=== PATIENT | male | born 1945 | race Caucasian/White ===

== ENCOUNTER → 2020-03-06 | Outpatient (CLI) | payer MEDICARE, BC | LOC: CANPRECLI → VAS 14:41 | DX: Z13.6 Encounter for screening for cardiovascular disorders (principal); M79.89 Other specified soft tissue disorders; Z96.641 Presence of right artificial hip joint ==

== ENCOUNTER → 2020-03-06 | Outpatient (CLI) | payer MEDICARE, BC | LOC: RAD 13:00 | DX: Z13.6 Encounter for screening for cardiovascular disorders (principal); M79.89 Other specified soft tissue disorders; Z96.641 Presence of right artificial hip joint ==